=== PATIENT | male | born 1950 | race Caucasian/White ===

== ENCOUNTER 2024-10-02 07:50 | Day surgery (SDC) | payer MEDICARE, OTHER ==
[~2024-10-02] VITALS: Ht 167.6 cm; Wt 62.0 kg
[~2024-10-02 07:50] MED LIST: AMLO1TAB24 PO; ATOR1TAB19 PO; AZEL1SPR3; BIMA01SOL; CAPT1TAB17 PO; FLUTISP; PHENYLEPHRINE 10% OPHTH SOL 5ML OS PRN; SEMA14TA2 PO; SITA50TAB PO; TAMS1CAP17 PO; TRUL10IN; XARE15TA PO
[2024-10-02] MEDS ORDERED: MIDAZOLAM INJ 2 MG/2 ML VIAL As Ordered ONE (08:12)
[2024-10-02] MEDS: OFLOXACIN 0.3 % (OCUFLOX) OPTH SOL 5ML OS ONE (08:18)
[2024-10-02] MEDS: LIDOCAINE 3.5% 1 ML OPHTH TOPICAL GEL OU ONE (08:18)
[2024-10-02] MEDS: CYCLOPENTOLATE 1% OPHTH SOLN 2 ML BTL OS SCH (08:19)
[2024-10-02] MEDS: TROPICAMIDE 1% OPHTH SOLN 15ML OS SCH (08:19)
[2024-10-02] MEDS: PHENYLEPHRINE 2.5% OPHTH SOL 2ML OS SCH (08:19)
[2024-10-02] MEDS: LIDOCAINE 1% SDV 5 ML VIAL As Ordered ONE (09:18)
[2024-10-02] MEDS: BSS IRRIG/VANCO(10MG)/TOBRA(5MG)/EPINEPH(1:1000-0.5CC)500ML BAG-ORONLY As Ordered ONE (09:18)
[2024-10-02] MEDS: CEFUROXIME 1 MG/0.1 ML INTRACAMERAL INJ As Ordered ONE (09:18)
[2024-10-02 09:34] VITALS: BP 124/61; TEMP 98.5; O2SAT 98
== END 2024-10-02 09:53 | disposition home or self-care (01) ==
LOC: M SDC 07:50
PROVIDERS: ATTEND Ophthalmology
DX: H25.12 Age-related nuclear cataract, left eye (principal); I48.91 Unspecified atrial fibrillation; E11.9 Type 2 diabetes mellitus without complications; K21.9 Gastro-esophageal reflux disease without esophagitis; J44.9 Chronic obstructive pulmonary disease, unspecified; Z79.01 Long term (current) use of anticoagulants; Z79.899 Other long term (current) drug therapy
CPT/HCPCS: 66984; J0697; J2250; J3010; V2788